=== PATIENT | female | born 1940 | race Caucasian/White ===

== ENCOUNTER 2019-11-10 08:03 | Day surgery (SDC) | payer MEDICARE ==
[2019-11-10] VITALS (9 sets, daily range): BP systolic 124–158; BP diastolic 56–104
[~2019-11-10] VITALS: Ht 162.6 cm; Wt 85.4 kg
[2019-11-10] MEDS ORDERED: fentaNYL/PF 50MCG/1 ML 2ML syringe IV PRN (08:25)
[2019-11-10] MEDS ORDERED: normal saline 1000ml 1,000 ML IV SCH (08:25)
[2019-11-10] MEDS ORDERED: MIDAZolam 1mg/ml 10ml vial IV PRN (08:25)
[2019-11-10] MEDS ORDERED: LEVO137T24 PO (08:35)
[2019-11-10] MEDS ORDERED: APIX5TAB3 PO (08:35)
[2019-11-10] MEDS ORDERED: PRAV80TA3 PO (08:40)
[2019-11-10] MEDS ORDERED: CARV25TA56 PO (08:40)
[2019-11-10] MEDS ORDERED: FLEC50TA28 PO (08:40)
[2019-11-10] MEDS ORDERED: RIVA20TA PO (08:40)
[2019-11-10 09:07] LABS: BASOPHILS # (AUTO) 0.1 X10'3 (0-0.2); BASOPHILS % (AUTO) 1.3 % (0-1); EOSINOPHILS # (AUTO) 0.3 X10'3 (0-0.9); EOSINOPHILS % (AUTO) 4.7 % (0-6); HEMATOCRIT 43.1 % (35.0-45.0); LYMPHOCYTES # (AUTO) 1.1 X10'3 (1.1-4.8); LYMPHOCYTES % (AUTO) 17.4 % (21-51); MEAN CORPUSCULAR HEMOGLOBIN 28.4 PG (27.0-31.0); MEAN CORPUSCULAR HGB CONC 32.5 g/dL (33.0-36.5); MEAN CORPUSCULAR VOLUME 87.4 FL (78-98); MONOCYTES # (AUTO) 0.4 X10'3 (0-0.9); MONOCYTES % (AUTO) 6.8 % (2-12); NEUTROPHILS # (AUTO) 4.6 X10'3 (1.8-7.7); NEUTROPHILS % (AUTO) 69.8 % (42-75); PLATELET COUNT 257 X10'3 (140-440); RED BLOOD COUNT 4.93 X10'6 (4.20-5.60); WHITE BLOOD COUNT 6.5 X10'3 (4.5-11.0)
[2019-11-10 09:17] LABS: ALBUMIN 3.8 G/DL (3.4-5.0); ANION GAP 11 (8-16); BLOOD UREA NITROGEN 26 MG/DL (7-18); CALCIUM 8.7 MG/DL (8.5-10.1); CHLORIDE 107 MMOL/L (99-107); CREATININE 1.13 MG/DL (0.40-0.90); GLUCOSE 104 MG/DL (70-104); MAGNESIUM 2.2 MG/DL (1.5-2.4); POTASSIUM 4.2 MMOL/L (3.5-5.1); SODIUM 142 MMOL/L (135-145); TOTAL CARBON DIOXIDE 23.6 MMOL/L (24-32); eGFR 46 ML/MIN
== END 2019-11-10 10:35 | disposition home or self-care (01) ==
LOC: SSTAY O 08:03
PROVIDERS: ATTEND Internal Medicine Cardiovascular Disease
DX: I48.0 Paroxysmal atrial fibrillation (principal); Z79.899 Other long term (current) drug therapy
CPT/HCPCS: 36415; 80048; 82948; 83735; 85025; 85610; 92960; 93005; 94760; J2250; J3010; J7030

== ENCOUNTER 2021-04-19 10:55 | Emergency (ER) | payer MEDICARE ==
[~2021-04-19] VITALS: Ht 162.6 cm; Wt 81.6 kg
[~2021-04-19 10:55] MED LIST: APIX5TAB3 PO; CARV25TA56 PO; FLEC50TA28 PO; LEVO137T24 PO; PRAV80TA3 PO; RIVA20TA PO
[2021-04-19 12:31] VITALS: BP 118/49
== END 2021-04-19 12:49 | disposition home or self-care (01) ==
LOC: ER 10:55
DX: S00.03XA Contusion of scalp, initial encounter (principal); F03.90 Unspecified dementia, unspecified severity, without behavioral disturbance, psychotic disturbance, mood disturbance, and anxiety; Z79.899 Other long term (current) drug therapy; Z79.01 Long term (current) use of anticoagulants; W17.2XXA Fall into hole, initial encounter; Z91.81 History of falling; Y93.01 Activity, walking, marching and hiking; Y92.090 Kitchen in other non-institutional residence as the place of occurrence of the external cause; Y99.8 Other external cause status
CPT/HCPCS: 72125; 93005; 99284